=== PATIENT | female | born 1950 | race Caucasian/White ===

== ENCOUNTER 2018-03-15 07:30 | Inpatient (IN) ==
[~2018-03-15 07:30] MED LIST: LIDOCAINE W/ SODIUM BICARB 0.5 ML SYR SUBD ONE; Lactated Ringers 1,000 ML PRIMARY IV ONE; Nasal Sanitizer POPSWAB ampule 3 AMP (Nozin) PREOP DOSE ENOS SCH; ceFAZolin Inj 2gm (Premix) 2 GM/50 ML BAG IV ONE
[2018-03-15] MEDS ORDERED: Vancomycin Inj 1gm vial ONE (07:37)
[2018-03-15] MEDS ORDERED: LIDOCAINE W/ SODIUM BICARB 0.5 ML SYR ONE (07:37)
[2018-03-15] MEDS ORDERED: ceFAZolin Inj 2gm (Premix) 2 GM/50 ML BAG IV ONE (07:37)
[2018-03-15] MEDS ORDERED: Lactated Ringers 1,000 ML PRIMARY IV ONE (07:37)
[2018-03-15] MEDS ORDERED: Sodium Chloride 0.9% 250 ML ONE (07:38)
[2018-03-15] MEDS ORDERED: Propofol 2,000 MG/200 ML VIAL IV ONE (10:15)
[2018-03-15] MEDS ORDERED: BUPIVACAINE 0.25% W/ EPI - 10 ML VIAL ONE (10:22)
[2018-03-15] MEDS ORDERED: Sodium Chloride 0.9% vial 10 ML ONE ×3 (10:23→16:44)
[2018-03-15] MEDS ORDERED: BACITRACIN 50,000 UNIT VIAL IRRIG ONE ×3 (10:23→16:44)
[2018-03-15] MEDS ORDERED: REMIFENTANIL 1 MG/1 ML IV ONE ×3 (10:27→15:29)
[2018-03-15] MEDS ORDERED: MIDAZOLAM 5 MG/1 ML ONE (10:27)
[2018-03-15] MEDS ORDERED: fentaNYL Inj 100 MCG/2 ML VIAL ONE ×2 (10:27→17:05)
[2018-03-15] MEDS ORDERED: DEXAMETHASONE PF 10 MG/1 ML VIAL ONE (11:11)
[2018-03-15] MEDS ORDERED: ePHEDrine Inj 50 MG/ML AMP ONE (11:13)
[2018-03-15] MEDS ORDERED: SUCCINYLCHOLINE CHLORIDE 20 MG/1 ML - 10 ML ONE (11:21)
[2018-03-15] MEDS ORDERED: PHENYLEPHRINE 10,000 MCG/1 ML VIAL ONE (11:22)
--- NOTE | 2018-03-15 13:36 | CRNA.PROGR ---
Anesthesia Recovery Phase I - Post Anesthesia Evaluation Patient's Condition on Arrival in Phase I: Stable Patient's Condition on Arrival in Phase II: Stable Pain Level: 6 (medicated)
--- NOTE | 2018-03-15 13:36 | CRNA.PROGR ---
Anesthesia Time - Procedure/Recovery Time Start Date: 03/15/18 End Date: 03/15/18 Anesthesia : Time In: 10:40 Anesthesia : Time Out: 17:31 Anesthesia : Total Time: 411 - Total Anesthesia Time Total Anesthesia Time (minutes): 411 - Other Weight: 92.079 kg Height: 5 ft 4 in Body Mass Index (BMI): 34.8 Physical Status: P3 Anesthesia Type: General Anesthesia : ET, Other (NIMS monitoring technique)
--- NOTE | 2018-03-15 13:36 | CRNA.PROGR ---
Post Anesthesia Phase II - Post Anesthesia Phase II Patient Stable and Discharged To: Med/Surg Care Assumed By Surgeon: Osvaldo Hancock MD Total Jhonny Score at Discharge: 9 Post Anesthesia Discharge Criteria Met: Yes
[2018-03-15] MEDS ORDERED: Lactated Ringers 2,000 ML PRIMARY IV ONE (15:35)
[2018-03-15] MEDS ORDERED: ONDANSETRON 4 MG/2 ML VIAL ONE (15:58)
[2018-03-15] MEDS ORDERED: PROPOFOL 10 MG/1 ML (200 MG/20 ML) VIAL IV ONE (16:15)
[2018-03-15] MEDS ORDERED: HYDROmorphone 2 MG/1 ML ONE (17:39)
[2018-03-15] MEDS: HYDROmorphone 2 MG/1 ML IVP PRN ×3 (17:40→18:20)
[2018-03-15] MEDS ORDERED: ONDANSETRON 4 MG/2 ML VIAL IVP PRN (17:41)
[2018-03-15] MEDS ORDERED: ATROPINE SULFATE 0.4 MG/1 ML VIAL IVP PRN (17:41)
[2018-03-15] MEDS ORDERED: Ondansetron ODT Tab 8 MG TAB PO PRN (17:41)
[2018-03-15] MEDS ORDERED: LIDOCAINE W/ SODIUM BICARB 0.5 ML SYR SUBD PRN (17:41)
[2018-03-15] MEDS ORDERED: Lactated Ringers 1,000 ML PRIMARY IV SCH (17:45)
--- NOTE | 2018-03-15 17:53 | GEN.OPNOTE ---
Operative Note Surgery Date: 03/15/18 Preoperative Diagnosis: Cervical Myelopathy/Severe multilevel central cervical canal stenosis Postoperative Diagnosis: Same Procedure: 1.) C3-4 Anterior Cervical Discectomy with foraminotomies bilaterally and removal of the posterior longitudinal ligament. 2.) C4-5 Anterior Cervical Discectomy with foraminotomies bilaterally and removal of the posterior longitudinal ligament. 3.) C5-6 Anterior Cervical Discectomy with foraminotomies bilaterally and removal of the posterior longitudinal ligament. 4.) Arthrodesis of the C3 and C4 endplates in preparation for fusion of the C3- 4 interspace. 5.) Arthrodesis of the C4 and C5 endplates in preparation for fusion of the C4-5 interspace. 6.) Arthrodesis of the C5 and C6 endplates in preparation for fusion of the C5-6 interspace. 7.) Insertion of a 7mm x 14mm x 17mm Tritanium C anterior cervical cage filled in the center with Cerapedics i- factor synthetic bone product (allograft) into the C3-4 interspace for fusion of the C3-4 interspace. 8.) Insertion of a 7mm x 14mm x 17mm Tritanium C anterior cervical cage filled in the center with Cerapedics i-factor synthetic bone product (allograft) into the C4-5 interspace for fusion of the C4-5 interspace. 9.) Insertion of a 7mm x 14mm x 17mm Tritanium C anterior cervical cage filled in the center with Cerapedics i-factor synthetic bone product ( allograft) into the C5-6 interspace for fusion of the C5-6 interspace. 10.) Anterior cervical plating using a 48 mm [place] Aviator titanium anterior cervical plate affixed to the C3, C4, C5 vertebral bodies using 4.0 x 16 mm variable angle titanium anterior cervical screws and into the C7 vertebral body using 4.0 x 16 mm fixed angle titanium anterior cervical screws. 11.) Use of 5 cc of Cerapedics i-factor synthetic bone product (allograft) for filling of the anterior cervical cages. 12.) Use of the operative microscope for the microsurgical techniques used for the C3-4, C4-5, and C5-6 discectomies. 13. Use of intra-operative fluroscopy for localization of the correct surgical levels and for confirmation of the final position of the intervertbral cages and anterior hardware elements. Estimated Blood Loss (mL): 400 Fluids: See anethesia operative record Pathology: None Indications: See pre-operative diagnosis Findings: Severe cervical central canal and bilateral neuroforaminal stenosis C3-4, C4-5, and C5-6. Complications: None Operative Summary: Miss Escamilla was met in the preoperative area. Her surgical history and physical was updated. The procedure to be performed was reviewed with Miss Escamilla and they were in agreement on the procedure and this matched the patient's consent form. Any questions that Mrs. Escamilla or family members had were answered before she was taken back to the operating room suite. Miss Escamilla was brought back to the operating room suite. General anesthesia was induced. She was intubated by the anesthesia staff. She had a Kline catheter placed or bladder for the procedure. She did pneumatic compression hose placed on her lower legs bilaterally. Her head rested in a gel ring and she had a rolled towel placed between her shoulder blades. Her arms were gently tucked at her sides with all bony prominences well padded. Her Kline catheter was checked be free from kinks. Her pneumatic compression hose was attached to pneumatic compression device. The C-arm fluoroscopy was used to help localize the incision for the approach to the intended surgical levels. The skin was marked along the medial border of the sternocleidomastoid muscle and several crosshatches were made with the skin marker as well. She was prepped and draped in the usual and standard fashion. She was given 2 g of Ancef and 1 g of vancomycin IV for perioperative antibiosis. She was given 20 mg of Decadron IV. The intended skin incision was injected subcutaneously with quarter percent Marcaine with 1 in 200,000 epinephrine. 6 mL of local anesthetic was used. The skin was incised with a 10 blade scalpel with all dermal and superficial subcutaneous bleeding points were controlled with bipolar cautery. The dissection was continued down to the level of the platysma muscle. The platysma muscle was opened in the direction of the skin incision. During the dissection through the caudal aspect of the exposure a small vessel was transected. There was some bleeding until this was brought under control with bipolar cautery. The dissection was continued. The medial border of the sternocleidomastoid muscle was identified. Further dissection yielded the omohyoid muscle. The omohyoid muscle was circumferentially dissected out and tagged with two 3-0 silk sutures and then cut with the stumps of muscle being retracted with the suture tags attached to snaps. Dissection was continued both sharp and blunt fashion down to the prevertebral fascia. The carotid artery was palpated to be lateral to the dissection plane. Hand-held Cloward retractors were used to gently retracted the soft tissue planes. The prevertebral fascia was dissected with a Kitner. When a disc space became this exposed the bent spinal needle was placed into this space and the disc space was identified as the C4-5 interspace by lateral fluoroscopy. Continued dissection of the prevertebral fascia was performed with a Kitner instrument exposing the C3-4 level and the C5-6 level. When trying to retract for exposure of the C3-4 interspace the facial vein was very stretched and under tension and it was felt that to proceed this vein on that much stretch risked avulsion of the vein so it was sacrified. 2-0 silk ligature were placed approximately 5-6 mm from where the facial vein entered into the internal jugular vein and another 0 silk ligature was placed more distally than this. The facial vein was then cut with a.m. Metzenbaum scissors and the cut ends were coagulated with bipolar cautery. The medial border of the longus coli muscle was dissected with Bovie cautery with an insulated tip turned down to a low setting. This was performed from the C3 vertebral body to the C6 vertebral body bilaterally. Cloward hand-held retractor was then replaced with the belt brander retractor system which was placed at the C3-4 level for the exposure this level and the protection of the soft tissues at this level. 12 mm Cabot distraction pins were then placed into the C3 and C4 vertebral bodies. The operative microscope was brought into the surgical field and used for microsurgical techniques used for the C3-4 discectomy. An annulotomy was performed with 15 blade scalpel and disc material was removed with pituitary rongeur. Additional disc and cartilaginous endplate was loosened and the interspace using a small straight curet with the fragments being removed with a pituitary rongeur. The [employer] high-speed electric drill with a 3 mm sidecutting bur was used to drill away the posterior osteophytes all along the posterior inferior aspect of the C3 vertebral body of the posterior superior aspect of the C4 vertebral body. The same drill with the same bit was used to perform foraminotomies bilaterally. The same drill with same bit was then used to decorticate the C3 and C4 endplates in preparation for the fusion of the interspace. The nerve hook was used to define the plane between the posterior longitudinal ligament and the dura. The posterior longitudinal ligament was completely removed in the interspace with a small Kerrison punch. Foraminotomy started with a high-speed drill with a matchstick bit were extended laterally using the small Kerrison punch. Excellent decompression of the spinal canal and neuroforamen was assured both by visual inspection as well as by palpation with a nerve hook underneath the vertebral bodies and out the neuroforamen bilaterally. The interspace was irrigated with bacitracin irrigation. FloSeal hemostatic agent was placed over the exposed dural elements. The interspace was sized for the appropriate size anterior cervical cage. A 7 mm x 14 mm x 17 mm Trititanium C titanium anterior cervical cage was selected and filled in the center with Cerapedics i-Factor synthetic bone product (allograft) and inserted into the C3-4 interspace with the co director. The cage was gently countersunk with a bone tamp and mallet. The cage obtained good purchase between the C3 and C4 endplates. The final position of the cage was confirmed with lateral fluoroscopy. The C3 distraction pin was removed and bony bleeding was controlled with FloSeal hemostatic agent and a surgical shweta. The Blackbelt self-retaining retractor system was removed and then placed at the C4-5 level for the exposure this level and the protection of the soft tissues at this level. The 12 mm distraction pin removed from the C3 vertebral body was placed into the C5 vertebral body. The C4-5 level was found to be completely collapsed. There was no discernible disc space as there was a large overhanging osteophyte along the anterior inferior aspect of the C4 vertebral body overhanging the upper anterior aspect of the C5 vertebral body completely covering the collapse C4-5 disc space. The disc space became identified after removing the large anterior osteophyte with a large Leksell instrument. The operative microscope was used for microsurgical techniques used for the C4- 5 discectomy. With this level essentially being completely collapsed the discectomy was completely performed with the PiPsports high-speed electric drill with a matchstick bit. The same drill with the same bit was used to perform foraminotomies bilaterally. The same drill with same bit was used to decorticate the C4 and C5 endplates in preparation for fusion of the C4-5 interspace. A nerve hook was used to define the plane between the posterior longitudinal ligament and the dura. The posterior longitudinal ligament was completely removed in the interspace with a small Kerrison punch. The same instrument was used to extend the foraminotomies bilaterally that have been started with a high -speed drill with a matchstick bit. Excellent decompression of the spinal canal and neuroforamen was assured both by visual inspection as well as by palpation with a nerve hook underneath the vertebral bodies and out the neuroforamen bilaterally. The interspace was irrigated with bacitracin irrigation. FloSeal hemostatic agent was placed over the exposed dural elements. The interspace was sized for the appropriate size anterior cervical cage. A 7 mm x 14 mm x 17 mm Trititanium C titanium anterior cervical cage was selected and filled in the center with Cerapedics i-Factor synthetic bone product (allograft) and inserted into the C4-5 interspace with the co director. The cage was gently countersunk with a bone tamp and mallet. The cage obtained good purchase between the C4 and C5 endplates. The final position of the cage was confirmed with lateral fluoroscopy. The C4 distraction pin was removed and bony bleeding was controlled with FloSeal hemostatic agent surgical shweta. The Blackbelt self-retaining retractor system was removed and then placed at the C5-6 level for the exposure this level and the protection of the soft tissues at this level. The 12 mm distraction pin removed from the C4 vertebral body was placed into the C6 vertebral body. The C5-6 level was also found to be completely collapsed. There was no discernible disc space as there was a large overhanging osteophyte along the anterior inferior aspect of the C5 vertebral body overhanging the upper anterior aspect of the C6 vertebral body completely covering the collapse C5-6 disc space. The disc space became identified after removing the large anterior osteophyte with a large Leksell instrument and removing some additional bone anteriorly with the high speed drill with the matchstick bit. The operative microscope was used for microsurgical techniques used for the C5- 6 discectomy. With this level essentially being completely collapsed the discectomy was completely performed with the PiPsports high-speed electric drill with a matchstick bit. The same drill with the same bit was used to perform foraminotomies bilaterally. The same drill with same bit was used to decorticate the C5 and C6 endplates in preparation for fusion of the C5-6 interspace. A nerve hook was used to define the plane between the posterior longitudinal ligament and the dura. The posterior longitudinal ligament was completely removed in the interspace with a small Kerrison punch. The same instrument was used to extend the foraminotomies bilaterally that have been started with a high -speed drill with a matchstick bit. Excellent decompression of the spinal canal and neuroforamen was assured both by visual inspection as well as by palpation with a nerve hook underneath the vertebral bodies and out the neuroforamen bilaterally. The interspace was irrigated with bacitracin irrigation. FloSeal hemostatic agent was placed over the exposed dural elements. The interspace was sized for the appropriate size anterior cervical cage. A 7 mm x 14 mm x 17 mm Trititanium C titanium anterior cervical cage was selected and filled in the center with Cerapedics i-Factor synthetic bone product (allograft) and inserted into the C5-6 interspace with the co director. The cage was gently countersunk with a bone tamp and mallet. The cage obtained good purchase between the C5and C6 endplates. The final position of the cage was confirmed with lateral fluoroscopy. The C5 and C6 distraction pins were removed and the belt brander retractor system was removed and placed in the center of the surgical dissection to provide the proper exposure needed for the instrumentation portion of the procedure. The appropriate size anterior cervical plate was selected both by visual inspection as well as by lateral fluoroscopy. A 48 mm [place] Aviator titanium anterior cervical plate was selected and affixed to the C3, C4, and C5 vertebral bodies using 4.0 x 16 mm variable angle titanium anterior cervical screws and to the C7 vertebral body using was 4.0 x 16 mm titanium anterior cervical screws. All screws obtained good purchase in the vertebral body bone. The locking mechanism was then deployed with visual inspection to ensure that the locking mechanism indeed fully deployed across each of the screw heads at each level bilaterally. Final AP and lateral fluoroscopic images were obtained. The surgical site was copiously irrigated with bacitracin irrigation. The marsh of the dissection plane was inspected for any bleeding points. Any identified were coagulated with bipolar cautery turned down to a low setting. The surgical site was irrigated with bacitracin irrigation again and the irrigant was allowed to set again for inspection of the bleeding points were done being identified. A medium SARA drain was placed into the surgical site. The closure portion of procedure was begun. The omohyoid muscle was reapproximated with 3-0 Vicryl suture in interrupted fashion. The platysmal muscle was reapproximated with 3- 0 Vicryl suture in a interrupted fashion. The dermis and superficial subcutaneous tissue was reapproximated with 3-0 Vicryl suture in an inverted interrupted fashion. The final layer of closure was performed with 4-0 Monocryl in a running subcuticular fashion. This Ioban drape was pulled back the skin edges and the skin edges were cleansed with a bacitracin soaked sponge and dried with sterile dry sponge. The incision was then dressed with a Mepilex dressing. All surgical drapes removed from Ms. Escamilla. She was carefully moved over onto the PACU stretcher. She was awoken and extubated by the anesthesia staff. She was taken to the recovery room in stable condition. All surgical counts were reported as correct by the scrub and circulating personnel. A physician's culture media laboratory assistant, Ms. Clau Santana assisted with the procedure including the exposure and closure portions of the procedure. She provided irrigation and suctioning throughout the surgical procedure.
[2018-03-15] MEDS ORDERED: Fleet Enema 133ml RECTAL PRN (18:34)
[2018-03-15] MEDS ORDERED: Prochlorperazine Edisylate Inj 10mg/2ml vial IVP PRN (18:34)
[2018-03-15] MEDS ORDERED: MORPHINE SULFATE 2 MG/1 ML IVP PRN (18:34)
[2018-03-15] MEDS ORDERED: DOCUSATE 100 MG CAPSULE PO PRN (18:34)
[2018-03-15] MEDS ORDERED: Vancomycin-PHA to Dose IV SCH (18:34)
[2018-03-15] MEDS ORDERED: PROMETHAZINE 25 MG/1 ML VIAL IM PRN (18:34)
[2018-03-15] MEDS ORDERED: HYDROcodone-APAP 10 MG-325 MG TABLET PO PRN (18:34)
[2018-03-15] MEDS ORDERED: Ondansetron ODT Tab 4 MG TAB PO PRN (18:34)
[2018-03-15] MEDS ORDERED: MAGNESIUM 400 MG/5 ML - 30 ML (MILK OF MAGNESIA) PO PRN (18:34)
[2018-03-15] MEDS ORDERED: Metoclopramide Inj 10 MG/2 ML VIAL IVP PRN (18:34)
[2018-03-15] MEDS ORDERED: BISACODYL 5 MG TABLET PO PRN (18:34)
[2018-03-15] MEDS ORDERED: HYDROcodone-APAP 5 MG -325 MG TABLET PO PRN (18:34)
[2018-03-15] MEDS ORDERED: MAGNESIUM CITRATE 296 ML SOLUTION PO PRN (18:34)
--- NOTE | 2018-03-15 19:23 | NEURO.PROG ---
Subjective Post Op Day: 0 Pain Management: PO Kline Catheter: Yes Diet: Regular Ambulating: No Additional Details: Awake and alert. Moving all extremities well. Plan: Continue drain. Continue post-operative antibiotics. Post-operative pain control. Mobilize. Objective : Data - Vital Signs Vital Signs and I&O: Vital Signs - Last Taken Temperature 97.7 F 03/15/18 17:35 Pulse Rate 88 03/15/18 18:25 Respiratory Rate 18 03/15/18 18:25 Blood Pressure 160/82 03/15/18 18:25 Pulse Ox 99 03/15/18 18:25 Intake and Output (24hr x 4 totals) 03/13/18 03/14/18 03/15/18 03/16/18 05:59 05:59 05:59 05:59 Intake Total 2600 / 2600 Output Total 1000 / 1000 Balance 1600 / 1600
[2018-03-15] MEDS: ceFAZolin Inj 1 GM in Sodium Chloride 0.9% 100 ML IV SCH (19:31)
[2018-03-15] MEDS: HYDROcodone-APAP 7.5 MG-325 MG TABLET PO PRN (21:00)
[2018-03-16] MEDS: HYDROcodone-APAP 7.5 MG-325 MG TABLET PO PRN ×2 (02:35→10:33)
[2018-03-16] MEDS: ceFAZolin Inj 1 GM in Sodium Chloride 0.9% 100 ML IV SCH (03:13)
[2018-03-16 04:59] LABS: BASOPHILS # (AUTO) 0 10*3/UL; BASOPHILS % (AUTO) 0 % (0-1); EOSINOPHILS # (AUTO) 0 10*3/UL; EOSINOPHILS % (AUTO) 0 % (0-8); Hematocrit [HCT] 36.3 % (37.0-47.0); Hemoglobin [HGB] 12.2 g/dL (12.0-16.0); LYMPHOCYTES # (AUTO) 0.49 10*3/uL; MEAN CORPUSCULAR HGB CONC 33.6 g/dL (33-37); MEAN CORPUSCULAR VOLUME 92.4 FL (81-99); MEAN PLATELET VOLUME 10.2 FL (7.4-12.2); MONOCYTES # (AUTO) 0.29 10*3/UL (0.3-0.8); MONOCYTES % (AUTO) 2.6 % (5-15); NEUTROPHILS # (AUTO) 10.53 10*3/UL; NEUTROPHILS % (AUTO) 92.8 % (50-80); RED BLOOD COUNT 3.93 10^6/uL (4.20-5.40)
[2018-03-16 05:03] LABS: BLOOD UREA NITROGEN 22 mg/dL (7-22); BUN/CREATININE RATIO 24.44 (6-20)
[2018-03-16 05:20] LABS: PLATELET MORPHOLOGY COMMENT NORMAL MORPHOLOGY (NORM); RBC MORPHOLOGY COMMENT NORMAL MORPHOLOGY (NORM); WBC MORPHOLOGY COMMENT NORMAL MORPHOLOGY (NORM)
--- NOTE | 2018-03-16 05:23 | CONSULT ---
Consult Note - Consult Reason for Consult: PostOp Consulation : Neuro Requesting Physician: Dr. Hancock Primary Care Provider: NONE NONE - History of Present Illness History of Present Illness: This very nice 67-year-old female past medical history of hypothyroidism and hypertension on the hydrochlorothiazide and valsartan was consulted by the Dr. Hancock for the management diseases he is postop with multilevel cervical discectomies by Dr. Hancock patient has no complaints Dr. Hancock told her that she could go home. Denies chest pain nausea or vomiting Past Medical History Medical History: Hypothyroidism, hypertension Tobacco Use: Never Smoker In the Past 12 Months, Have Used or Abuse Any of the Following Substance: None Review of Systems - Review of Systems All Systems: Reviewed & No Additional Complaints Except as Stated - Respiratory Respiratory: DENIES: Negative System Review, Cough, Sputum, Dyspnea At Rest, Dyspnea with Exertion, Pleuritic Pain, Hemoptysis, Wheezing, Other, See HPI - Cardiovascular Cardiovascular: DENIES: Negative System Review, Chest Pain, Edema, Syncope, Palpitations, Orthopnea, Paroxysmal Nocturnal Dyspnea, Other, See HPI - Gastrointestinal Gastrointestinal / Abdominal: DENIES: Negative System Review, Nausea, Vomiting, Diarrhea, Constipation, Abdominal Pain, Bloody Stool, Poor Appetite, Heartburn, Regurgitation, Bloating, Lactose Intolerance, Melena, Bright Red Blood per Rectum, Other, See HPI Medication / Allergies Home Medications: Home Medications 3 Medication Instructions Recorded Confirmed Type aspirin 81 mg tablet,delayed 81 mg PO QDAY 02/13/18 03/15/18 History release cyclobenzaprine 5 mg tablet 5 mg PO QDAY PRN tab 02/13/18 03/15/18 History hydrochlorothiazide 25 mg tablet 12.5 mg PO QDAY 02/13/18 03/15/18 History levothyroxine 88 mcg capsule 88 mcg PO QDAY 02/13/18 03/15/18 History losartan 100 mg tablet 100 mg PO QDAY 02/13/18 03/15/18 History multivitamin capsule 1 cap PO QDAY 02/13/18 03/15/18 History oxybutynin chloride 5 mg tablet 5 mg PO BID 02/13/18 03/15/18 History simvastatin 20 mg tablet 20 mg PO QHS 02/13/18 03/15/18 History Allergies/Adverse Reactions: Allergies 3 Allergy/AdvReac Type Severity Reaction Status Date / Time tetanus and diphtheria Allergy Mild HIVES Verified 03/16/18 07:41 toxoids Exam - Vitals Vital Signs: Vital Signs Temperature 97.6 F Temperature Source Temporal Artery Scan Pulse Rate [Pulse Oximeter] 80 Pulse Rate 88 Respiratory Rate 18 Blood Pressure [Right Arm] 151/60 Blood Pressure 160/82 Pulse Ox 96 Oxygen Flow Rate 2 Oxygen Delivery Method CPAP (Home Unit) Height 5 ft 4 in Weight 203 lb - General General Appearance: No Acute Distress, Cooperative - Eye Eye Exam: POSITIVE: Normal Appearance, PERRL, EOMI, No Scleral Icterus - Respiratory Respiratory Exam: POSITIVE: Clear to Auscultation - Bilaterally, Breathing Non Labored, Normal To Percussion, Normal to Percussion and Palpation - Cardiovascular Cardiovascular Exam: POSITIVE: RRR, No Murmur, No Clicks, No Gallops, No Rubs, PMI Non-Displaced - GI/Abdominal GI/Abdominal Exam: POSITIVE: Normal Bowel Sounds, Non Tender, Non Distended, Soft, No Masses, No Hepatomegaly, No Splenomegaly, No Organomegaly - Extremities Extremities Exam: POSITIVE: No Clubbing Present, No Edema Present, No Cyanosis Present Results - Labs CBC and BMP: 03/16/18 04:18 03/16/18 04:18 Assessment and Plan - Patient Problems (1) High blood pressure Current Visit: No Status: Chronic Comment: Continue HCTZ and valsartan this is been stable she is also okay to discharge from the medical standpoint in regards to her hypertension and hypothyroidism no change in home meds from my standpoint Code(s): I10 - Essential (primary) hypertension (2) Thyroid disease Current Visit: No Status: Chronic Comment: Continue thyroid replacement levothyroxine Code(s): E07.9 - Disorder of thyroid, unspecified (3) S/P cervical discectomy Current Visit: Yes Status: Acute Comment: Deferred to Dr. Hancock for postop management discharge instructions for PT OT and follow-ups see Dr. Hancock's note Code(s): Z98.890 - Other specified postprocedural states
--- NOTE | 2018-03-16 05:33 | NEURO.PROG ---
Subjective Post Op Day: 1 Pain Management: PO Gill Catheter: No Diet: Regular Ambulating: No Additional Details: Awake and alert. Oriented; conversant. Neck soft/flat. Good airline ticket agent strength bilaterally. Able to place hands on head and straight overehead easily. Good dorsiflexion/plantarflexion bilaterally. Drain output - 20cc (last shift). PLAN: Discontinue gill. Discontinue drain. Advance diet. Continue post-operative antibiotics. Continue post-operative pain control. Ready for discharge from neurosurgery standpoint. Objective : Data - Labs CBC and BMP: 03/16/18 04:18 03/16/18 04:18 - Vital Signs Vital Signs and I&O: Vital Signs - Last Taken Temperature 97.6 F 03/16/18 04:37 Pulse Rate 80 03/16/18 04:37 Respiratory Rate 18 03/16/18 04:37 Blood Pressure 151/60 03/16/18 04:37 Pulse Ox 96 03/16/18 04:37 Intake and Output (24hr x 4 totals) 03/13/18 03/14/18 03/15/18 03/16/18 05:59 05:59 05:59 05:59 Intake Total 4382 / 4382 Output Total 1420 / 1420 Balance 2962 / 2962
[2018-03-16] MEDS ORDERED: PANTOPRAZOLE 40 MG TABLET PO SCH (07:00)
[2018-03-16 07:09] VITALS: TEMP 97.4
[2018-03-16 11:27] VITALS: BP 169/62; RESP 19; O2SAT 91
--- NOTE | 2018-03-16 14:36 | PT.PROG ---
Progress Note Progress Note: S. Patient states she is having a lot of pain in her left shoulder and arm, she reports that she has a lot of help at home. O. Patient ambulated 40 feet to the stair well then ascended and descended 4 stairs, Patient then ambulated 40 feet back to her room where she was left in her chair with alarm and call light. A. Patient has an ataxic gait pattern and is a little impulsive however discussed with and daughter about assist at home. Patient struggled with balance when attempted to ambulate without walker therefore recommended that patient use a 4 wheeled walker at home due to poor balance without the walker. Patient could benefit from Outpatient therapy as per Dr's orders. P. Patient met goals at this time with family support system.
[2018-03-16] MEDS ORDERED: CYCLOBENZAPRINE 10 MG TABLET PO ONE (15:01)
--- NOTE | 2018-03-16 15:44 | OTI REPORT ---
Thank you for the referral of Ayde Escamilla. She was seen on 03/16/18 for an occupational therapy inpatient evaluation status post cervical fusion. SUBJECTIVE: The patient is a 67-year-old female. The patient reports she is having very minimal pain in her neck this morning. She states she is just feeling very stiff overall. She does want to try to get up and move with therapy. The patient reports that she lives in [place], [place]. She lives at home with her and her adult daughter who will help to provide assistance. The patient has three steps to the entrance of her home with a handrail on the right side. The patient was mainly independent with ADLs at prior level of function; however, did need assistance on occasion, especially for functional mobility tasks. The patient's reports that he assists her walking within the home as she tends to lose her balance. The patient did report that she has not had a fall in the last three months and she has had a history of low back problems. The patient ambulates with the use of a four wheeled walker within the community. The patient has access to a sock aide at home. She has used one before and her daughter can help her. The patient would like a mechanical oxidizer as hers is broken. The patient does have a high toilet seat. She may benefit from toilet tongs as she cannot twist to see anything at this point in time with the neck brace on. PAST MEDICAL HISTORY: Past medical history can be found in the patient's medical record. OBJECTIVE FINDINGS: Bed mobility: The patient was assisted to edge of bed with moderate assistance. The patient was able to sit edge of bed independently without support bilaterally for approximately 5 minutes. Activities of daily living: The patient did not want to complete dressing tasks and dressing was not completed this morning due to the patient still having a catheter and IV in place. Transfers: The patient performed a sit to stand transfer from edge of bed with minimal assist and verbal cues to push up from the bed. Ambulation: The patient ambulated to the bathroom, approximately 15 feet with an ataxic gait pattern. The patient required one rest break. ASSESSMENT: Problem List: Decreased ability to perform lower and upper extremity dressing Decreased standing balance Decreased ability to complete toileting Short-Term Goals: To be met by discharge from inpatient: Patient will demonstrate the ability to complete lower extremity dressing with minimal assistance as provided from her and or daughter with use of adaptive equipment as needed. Patient will be able to complete upper extremity dressing with set up assistance. Patient will complete toilet hygiene tasks with modified independence with use of toilet tongs. Long-Term Goals: To be met following discharge from inpatient: Patient may benefit from outpatient physical therapy. It is recommended that the patient use a walker within the home due to her ataxic gait pattern. TREATMENT PLAN: Patient will be seen one more time this afternoon before discharge. INITIAL TREATMENT: Treatment today consisted of the initial evaluation activities only. BERT
--- NOTE | 2018-03-16 15:47 | OT PM DAY ---
Diagnosis : Cervical Fusion PM - Occupational Therapy S: The patient is having more pain in the left shoulder this afternoon. She reports she is getting her feeling back in her left arm. O: The patient completed lower extremity dressing with moderate assistance with use of adaptive equipment. Her family reports that they will be able to provide this assistance at home with use of a chemotherapist to don briefs and pants. The patient completed upper extremity dressing with set up assistance and required moderate assistance to clasp her bra in the back. The patient was able to don and doff the cervical collar brace with verbal cues only. The patient was instructed in the use of toilet tongs. Following OT session the patient transitioned to PT. She did require contact guard assist at all times for functional mobility due to unsteady ataxic gait. A: The patient would benefit from continued practice with use of adaptive equipment. Her daughter and her are able to provide assistance at home as needed for ADL tasks. P: Continue seeing patient BID during the week and one time per day over the weekend until discharge. BERT
--- NOTE | 2018-03-17 15:01 | PTI REPORT ---
Thank you for the referral of Ayde Escamilla. She was seen on 03/16/18 for an inpatient evaluation status post cervical fusion. SUBJECTIVE: The patient is a 67-year-old female who underwent a three level cervical fusion yesterday. The patient reports that she is doing well following surgery. She states that she has not been up out of bed yet this morning but is looking forward to getting up and moving around. The patient reports 0/10 pain at this time. The patient states that she lives in [place] with her and her daughter. The patient states that she has three stairs with a railing on the right side to get into and out of her home. Everything she needs to access within the home is on the main level. There is a basement but she states she does not go into the basement often. The patient has a four wheeled walker in her room. She states that she uses this when she is out of her house, but there are times she ambulates without a walker. The patient denies any falls over the last year. PAST MEDICAL HISTORY: Past medical history can be found in the patient's medical record. OBJECTIVE FINDINGS: General observations: The patient was alert and oriented to setting upon PT arrival. The patient was supine in bed with head of bed elevated. The patient had a Kline and an IV in place. The patient reported 0/10 pain. Bed mobility: The patient required min assist x1 to move from a supine to seated edge of bed position as she had a difficult time moving in the hospital bed. Upon sitting edge of bed the patient stated that she felt a little lightheaded, which dissipated after sitting for approximately one minute. The patient demonstrated good seated edge of bed balance and was able to change her gown with assistance due to her IV while sitting edge of bed. Transfers: The patient required cueing in order to push off of the bed vs. grabbing onto her walker but was able to complete a sit to stand transfer with contact guard assist x1 for safety. The patient demonstrated fair initial standing balance with hand hold assist x2 on the walker. She stated that she was a little dizzy with initially standing as she hadn't been up yet, but after standing for approximately one minute, she felt better and was willing to do some walking. Ambulation: The patient ambulated with her four wheeled walker with contact guard assist x1. The patient did demonstrate an antalgic gait pattern. She maintained flexion of her hips and knees and ambulated on her toes. When asked , the patient states that she has had issues with her low back before and this is the pattern of walking that she has had for many years. She does remember to cue herself to try to walk with a heel/toe gait pattern. She still demonstrates a shuffling gait pattern, but with cueing was able to ambulate more safely. She did need some cueing in order to not let the walker get too far in front of her while she was ambulating. The patient ambulated approximately 100 feet before requiring a seated rest break. While sitting, the patient did mention that she had not had anything to eat since her surgery, so that could be contributing to her lightheadedness. The therapist did change out the chair that was in the patient's room and the therapist set it up so that the patient could sit up in the chair. The patient ambulated back an additional 25 feet to her room and was left in chair. ASSESSMENT: The patient has good rehab potential to return back home. Problem List: Decreased endurance Difficulty with transfers as she is status post cervical fusion Short-Term Goals: To be met by discharge from inpatient: Patient will be able to ambulate at least 150 feet safely and independently with four wheeled walker. Patient will be able to ascend and descend at least 5 steps with a railing on the right side safely and independently. Patient will be able to transfer from bed to stand safely and independently in order to return back home. Long-Term Goals: To be met following discharge from inpatient: Patient may be seen by outpatient physical therapy if deemed necessary upon time of discharge. TREATMENT PLAN: Patient will most likely discharge this afternoon as she is doing well. We do still need to assess her ability to do stairs this afternoon and ensure that she gets the right cervical brace before leaving. We will plan to see her one time this afternoon to address our goals. If goals are met, she will be discharged at that time. INITIAL TREATMENT: Treatment today consisted of the initial evaluation followed by functional activity. Following treatment the patient was left in chair with chair alarm on and call light within reach. The patient was given a menu to order some food. We did discuss that we would practice stairs later this afternoon. The therapist did place a Wise collar on the patient. Per Dr. Hancock's orders, he did want a brace for the patient and we were waiting for Kal Beckford to arrive with the correct brace as we did not have one in stock. We did use the Wise collar when she was up and moving and did take it off when she was sitting in the chair and we had gotten her adjusted comfortably in the chair. BERT
== END 2018-03-16 15:50 | disposition home or self-care (01) | DRG 473 ==
LOC: OPS 07:55 → EDSTATUS 09:45 → MED/SURG 18:32
PROVIDERS: ADMIT Neurological Surgery; ATTEND Neurological Surgery